=== PATIENT | female | born 1990 | race Hispanic/Latino ===

== ENCOUNTER 2021-03-12 09:12 | Emergency (ER) | payer MEDICAID ==
[~2021-03-12] VITALS: Ht 160 cm; Wt 72.7 kg
[2021-03-12] MEDS ORDERED: BACTRIM DS1 TAB PO (09:51)
[2021-03-12] MEDS ORDERED: KEFLEX500 MG PO (09:51)
[2021-03-12] MEDS ORDERED: LORTAB 1010 MG PO (09:51)
[2021-03-12 10:24] VITALS: BP 131/89
== END 2021-03-12 10:24 | disposition home or self-care (01) | DRG 603 ==
LOC: ED 09:12
PROC: 0H98XZZ Drainage of Buttock Skin, External Approach (ICD-10-PCS; principal; 2021-03-12)
DX: L02.31 Cutaneous abscess of buttock (principal); B95.62 Methicillin resistant Staphylococcus aureus infection as the cause of diseases classified elsewhere

== ENCOUNTER 2021-03-13 10:31 | Emergency (ER) | payer MEDICAID ==
[~2021-03-13] VITALS: Ht 160 cm; Wt 59.9 kg
[~2021-03-13 10:31] MED LIST: BACTRIM DS1 TAB PO; KEFLEX500 MG PO; LORTAB 1010 MG PO
[2021-03-13 11:14] VITALS: BP 136/74
== END 2021-03-13 11:29 | disposition home or self-care (01) | DRG 951 ==
LOC: ED 10:31
DX: Z48.01 Encounter for change or removal of surgical wound dressing (principal)